=== PATIENT | female | born 1970 | race Caucasian/White ===

== ENCOUNTER 2024-04-17 19:46 | Emergency (ER) | payer BC, SELFPAY ==
[2024-04-17 19:46] VITALS: BP 127/82; PULSE 98; RESP 16; TEMP 36.8; O2SAT 98; BMI 25.2
--- NOTE | 2024-04-17 20:04 | [facility].EDGENADL ---
Discharge Plan Disposition Patient Disposition: Home, Self-Care Condition: Good Activity Restrictions/Add. Instructions Additional Instructions/Restrictions: You were evaluated in the ER and are appropriate for discharge at this time. Drink plenty of water. Continue taking home medications as previously prescribed. Make an appoint with your primary care physician for reevaluation in a few days. Return to the ER with new, worsening, or otherwise concerning symptoms. Clinical Impressions Clinical Impression: Bee sting Discharge ED Provider: Kira Mendes Adult HPI General Chief complaint: Allergic Reaction Stated complaint: bee sting Time Seen by Provider: 04/17/24 19:59 Mode of Arrival: EMS Source of Information: Patient and EMS Limitations: No Limitations Description of Symptoms (Recalled from ER Triage Doc. by RN): Pt presents to ED for a bee/wasp sting to the finger. Pt felt like her throat was swollen so she called EMS. EMS gave 25 mg of Benadryl and pt states she's feeling better now. Pt is unsure if she has an allergy to stings. Pt is A&O*4 an all vitals are stable at this time. History of Present Illness HPI narrative: 53-year-old female presents to the ER for concerns of be or wasp sting on the right index finger. Patient got scared approximately 15 minutes after her bee sting that she felt like her throat was closing so she called EMS. Patient received 25 mg of Benadryl and patient states she immediately started to feel better. She has no history of allergy to bee stings or allergies to medications or other things. Patient reports no difficulty breathing, no nausea or vomiting, no hives or itching. No other associated symptoms. She states she feels normal at this time. Bee sting happened approximately 1 hour prior to arrival. [facility] Disclaimer: The information contained in this section may have been updated after the patient was seen, as this information can be updated by other users. Social History Smoking Status: Former smoker alcohol intake: never current occupational status: other Travel in the last 8 weeks: None ROS Obtained: Yes All systems reviewed & no additional complaints except as documented Positive ROS per HPI Physical Exam General General appearance: alert and in no apparent distress Head Head exam: atraumatic and normocephalic Eye Eye exam: Present PERRL and EOMI ENT ENT exam: Present normal oropharynx, mucous membranes moist and other (No oropharyngeal swelling, no lip swelling, no findings of angioedema) Neck Neck exam: Present normal inspection and full ROM Chest Chest inspection: Present symmetric chest wall rise Respiratory Respiratory exam: Present normal lung sounds bilaterally; Absent respiratory distress, wheezes or stridor Cardiovascular Cardiovascular exam: Present regular rate and normal rhythm Abdominal Exam Abdominal exam: Present soft; Absent distention or tenderness Extremities Exam Extremities exam: Present full ROM Neurological Exam Neurological exam: Present alert and oriented X3; Absent motor sensory deficit Psychiatric Psychiatric exam: Present normal affect and normal mood Skin Skin exam: Present warm, dry and other (small bee sting right index finger, no swelling, tenderness, or erythema. No pain. No itching.); Absent rash Medical Decision Making [place] Inquiry Pt receiving controlled substance: No Vital Signs: 04/17/24 19:46 Temperature 98.3 F Temperature Source Oral Pulse Rate [Left] 98 H Respiratory Rate 16 Blood Pressure [Right Arm] 127/82 Blood Pressure Mean [Right Arm] 97 02 Sat by Pulse Oximetry 98 Oxygen Delivery Method Room Air Medical Decision Narrative: In summary, this 53-year-old female presents to the emergency department today with concerns of bee sting to right index finger. On initial evaluation patient is hemodynamically stable, afebrile, airway patent, no stridor, no difficulty swallowing, no findings of angioedema, no wheezing or shortness of breath, no nausea or vomiting, no rash or swelling, no hives, physical exam is benign. Differential diagnosis includes but is not limited to allergic reaction, bee sting, I considered anaphylaxis but patient has no multisystem organ involvement, no findings of shock. Exam is inconsistent with anaphylaxis.. I do not believe patient requires labs or imaging. She is appropriate for discharge at this time. Patient was given instructions on symptomatic management, follow up instructions, and return precautions for the emergency department. Patient indicated understanding and was discharged in stable condition. Critical Care Critical Care Time Critical Care Time: No
--- NOTE | 2024-04-17 20:15 | PC.NURSE ---
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
[2024-04-17 20:16] VITALS: BP 110/82; PULSE 77; RESP 16; TEMP 36.8; O2SAT 98
== END 2024-04-17 20:34 | disposition home or self-care (01) ==
PROVIDERS: Emergency Provider Emergency Medicine
DX: T63.441A Toxic effect of venom of bees, accidental (unintentional), initial encounter (principal)
CPT/HCPCS: 99282; 99283